=== PATIENT | female | born 1945 | race Two or more races ===

== ENCOUNTER 2017-02-04 10:20 | Emergency (ER) | payer MEDICARE, OTHER ==
[~2017-02-04] VITALS: Ht 162.6 cm; Wt 63.5 kg
[~2017-02-04 10:20] MED LIST: HYDR25TA4
[2017-02-04 11:50] VITALS: BP 170/67
== END 2017-02-04 12:18 | disposition home or self-care (01) ==
LOC: ER 10:20
DX: M13.861 Other specified arthritis, right knee (principal)
CPT/HCPCS: 73562

== ENCOUNTER 2018-05-26 00:53 | Emergency (ER) | payer MEDICARE, OTHER ==
[~2018-05-26] VITALS: Ht 162.6 cm; Wt 66.7 kg
[2018-05-26] MEDS ORDERED: ACETAMINOPHEN/CODEINE#3 (300/30mg) TAB PO ONE (05:45)
[2018-05-26] MEDS ORDERED: BACLOFEN 10 MG TAB PO ONE (05:45)
[2018-05-26] MEDS ORDERED: TRIAMCINOLONE 40MG/ML 1ML VIAL IX ONE (05:45)
[2018-05-26] MEDS ORDERED: LIDOCAINE 2%HCL (LOCAL ANESTH.) INJ 10ml MDV IJ ONE (05:45)
[2018-05-26] MEDS ORDERED: LIDOCAINE 2% (LOCAL ANESTH.) PF 5ml SDV ONE ×2 (05:52→06:03)
[2018-05-26 05:55] VITALS: BP 154/80
[2018-05-26] MEDS ORDERED: DEXAMETHASONE SOD PHOS 10MG/1ML VIAL INJ IM ONE (06:00)
== END 2018-05-26 06:25 | disposition home or self-care (01) ==
LOC: ER 00:53
DX: S20.212A Contusion of left front wall of thorax, initial encounter (principal); M62.838 Other muscle spasm; W19.XXXA Unspecified fall, initial encounter; Y93.89 Activity, other specified; Y92.89 Other specified places as the place of occurrence of the external cause; Y99.8 Other external cause status
CPT/HCPCS: 71101; 71250; 96372; 99284; J1100; J2001